=== PATIENT | female | born 1975 | race Caucasian/White ===

== ENCOUNTER → 2023-02-01 11:08 | Outpatient (BNVA) | payer SELFPAY | PROVIDERS: Family Provider Nurse Practitioner Family; PCP Registered Nurse; Visit Provider Registered Nurse | DX: N39.0 Urinary tract infection, site not specified (principal) | CPT/HCPCS: 81000 ==

== ENCOUNTER → 2023-02-06 08:04 | Outpatient (BNVA) | payer SELFPAY | PROVIDERS: Family Provider Nurse Practitioner Family; PCP Registered Nurse; Visit Provider Registered Nurse | DX: D35.00 Benign neoplasm of unspecified adrenal gland (principal) | CPT/HCPCS: 82533 ==

== ENCOUNTER 2024-02-21 13:25 | Emergency (ER) | payer BC, MEDICAID, SELFPAY ==
[2024-02-21 13:44] VITALS: BP 161/94; PULSE 77; RESP 16; TEMP 36.7; O2SAT 99
[2024-02-21 14:33] LABS: Basophils # 0.1 10^3/uL (0.0-0.1); Basophils % 0.4 %; Eosinophils # 0.1 10^3/uL (0.0-0.8); Eosinophils % 0.4 %; Hematocrit 42.5 % (36-47); Lymphocytes # 3.3 10^3/uL (0.8-4.8); Lymphocytes % 28.2 %; Mean Corpuscular HGB Conc 34.4 g/dL (30-55); Mean Corpuscular Hemoglobin 31.4 pg (27-33); Mean Corpuscular Volume 91.4 fl (85-98); Mean Platelet Volume 9.4 fL (7.4-10.4); Monocytes # 0.6 10^3/uL (0.2-0.9); Monocytes % 4.8 %; Neutrophils # 7.66 10^3/uL (1.8-7.7); Neutrophils % 65.9 %; Nucleated Red Blood Cells % 0 %; Platelet Count 285 10^3/cmm (157-399); Red Blood Count 4.65 10^6/uL (3.85-5.65); Red Cell Distribution Width 11.9 % (12.1-15.1); White Blood Count 11.63 10^3/uL (3.29-11.43)
[2024-02-21 14:48] LABS: HCG, Serum Qual Negative (Negative)
[2024-02-21 14:57] LABS: Alanine Aminotransferase 14 U/L (0-33); Albumin Level 4.5 g/dL (3.5-5.2); Alkaline Phosphatase 115 U/L (35-105); Aspartate Amino Transferase 18 U/L (0-32); Blood Urea Nitrogen 15 mg/dL (6-20); Carbon Dioxide 27 mmol/L (22-29); Chloride 105 mmol/L (98-107); Creatinine Clr Calc Pharmacy 77.1347; Glomerular Filtration Rate 67.1 mL/min (90-130); Glucose 98 mg/dL (65-115); Osmolality Calculated 295 mOsm/kg (285-295); Sodium 142 mmol/L (136-145); Total Bilirubin 0.3 mg/dL (0.15-1.2); Total Protein 7.5 g/dL (6.6-8.7)
--- NOTE | 2024-02-21 15:30 | ED_ITS ---
HPI - General Adult 2 General: Chief complaint: Weakness Stated complaint: panic attack Time Seen by Provider: 02/21/24 15:01 Source: patient Mode of arrival: EMS Limitations: no limitations History of Present Illness: Patient is a 48-year-old female who arrived to the ED today via EMS and subsequently taken to the waiting room here for what she believes could be panic attacks. Patient states she is under a significant amount of stress. Patient states Monday evening she felt very anxious and felt like she was breathing rapidly. She states her body then went numb and her legs felt crampy and she got tunnel headed . She states episode lasted approximately 30 minutes. Patient states she felt fine Monday and Monday but earlier today she states she had an upcoming [facility] [place] appointment and was very anxious in regards to this. She states she has a fear that her parents are going to place her on a 96-hour hold. Patient states she later had an argument with her mother which caused her to feel very stressed and then shortly after she began experiencing the same symptoms of body numbness, cramping, and feeling foggy headed. Again episode lasted approximately 30 minutes. Patient states she went for a walk which usually helps with her anxiety. Upon arrival to the emergency department she feels back to normal. She clinically appears in no acute distress with stable vital signs. Onset (ago): day(s) Relieving factors: none Exacerbating factors: other (stress/anxiety) Associated symptoms: Deny chest pain, dyspnea, headache(s), malaise, nausea, rash, palpitations, syncope or vomiting Treatments prior to arrival: none Review of Systems 2 Const: Denies: fever(s), chills, body aches, fatigue or malaise Eyes: Denies: change in vision or blurry vision Card: Denies: chest pain, palpitations, irregular heart rhythm, lightheadedness, syncope or dyspnea on exertion Resp: Denies: dyspnea, productive cough or pain on inspiration GI: Denies: abdominal pain, nausea, vomiting, heartburn or diarrhea : Denies: dysuria Musc: Denies: neck pain, back pain, extremity pain, extremity swelling or joint pain Skin/Breast: Denies: rash Neuro: Denies: headache(s), numbness in extremities, weakness in extremities or sensory changes Psych: Reports: anxiety; Denies: visual hallucinations, auditory hallucinations, suicidal ideation or homicidal ideation PFSH ED 2 PFSH: Medical History Post-menopause Family History Denies family history of Colon cancer Ovarian cancer Diabetes Heart disease Hypercholesteremia Breast cancer Hypertension Uterine cancer Thyroid disease Stroke Social History Smoking and tobacco/nicotine status: current every day tobacco/nicotine user Alcohol intake: never Substance/Drug Use: never Adopted: No Caregiver/support person: No Lives independently: No Household members: children service: No Current occupational status: employed Sexually active: Yes Do you think of yourself as: Straight/Heterosexual Current gender identity: Female Physical Exam 2 Const: COMMON NORMALS: no acute distress, patient oriented x3, no limitations, alert and well nourished GENERAL APPEARANCE: cooperative O RIENTATION/CONSCIOUSNESS: Yes awake, Yes oriented to person, Yes oriented to place and Yes oriented to time HENMT: COMMON NORMALS: normocephalic and atraumatic HEAD & SCALP: normal to inspection, normocephalic and atraumatic Eye: COMMON NORMALS: no scleral icterus Neck/C-Spine: COMMON NORMALS: full ROM, no lymphadenopathy, supple and no meningeal signs Chest: COMMONS NORMALS: normal inspection of the chest Resp: COMMON NORMALS: normal respiratory effort and clear to auscultation bilaterally AUSCULTATION: clear to auscultation bilaterally Cardio: COMMON NORMALS: regular rate and regular rhythm RATE: regular rate RHYTHM: regular rhythm Extremity: GENERAL: Yes normal exam except as noted Neuro: JUAN COMA SCALE: document GCS findings [place] coma scale eye opening: Spontaneous [place] coma scale verbal response: Orientated [place] coma scale motor response: Obey commands Juan coma scale total score: 15 COMMON NORMALS: patient oriented x3, CN's II-XII intact bilaterally, moves all extremities, no focal motor deficits, no sensory deficits noted and gait normal SENSORIUM/ORIENTATION: Yes alert, Yes oriented to person, Yes oriented to place and Yes oriented to time MENINGEAL SIGNS: Yes no meningeal signs Skin: COMMON NORMALS: no rashes or lesions noted GENERAL SKIN EXAM: no rashes or lesions noted Course 2 Vital Signs: Vital signs: Vital Signs Temperature 98.0 F 05/29/24 13:44 Pulse Rate 77 02/21/24 13:44 Respiratory Rate 16 02/21/24 13:44 Blood Pressure 161/94 02/21/24 13:44 Pulse Oximetry 99 02/21/24 13:44 Oxygen Delivery Me thod Room Air 02/21/24 13:44 MDM - General Adult Medical Decision Making Patient's history is consistent with panic attacks. Currently she appears in no acute distress with stable vitals. Her blood work is unremarkable. Recommend she continue services through [facility] [place]. She did miss her appointment today so she needs to contact them to reschedule. She was agreeable to start Vistaril to help with her anxiety. Also requesting a refill on her Lisinopril. She states she used to be on this but has not been for over a year. She has been hypertensive while here. Patient is not SI/HI. Medical Records I reviewed the patient's medical records. Lab Data I reviewed the patient's lab results. 02/21/24 14:09 02/21/24 14:09 Laboratory Results WBC 11.63 10^3/uL (3.29-11.43) H 02/21/24 14:09 RBC 4.65 10^6/uL (3.85-5.65) 02/21/24 14:09 Hgb 14.60 g/dL (11.27-16.99) 02/21/24 14:09 Hct 42.5 % (36-47) 02/21/24 14:09 MCV 91.4 fl (85-98) 02/21/24 14:09 MCH 31.4 pg (27-33) 02/21/24 14:09 MCHC 34.4 g/dL (30-55) 02/21/24 14:09 RDW 11.9 % (12.1-15.1) L 02/21/24 14:09 Plt Count 285 10^3/cmm (157-399) 02/21/24 14:09 MPV 9.4 fL (7.4-10.4) 02/21/24 14:09 Neut % (Auto) 65.9 % 02/21/24 14:09 Lymph % (Auto) 28.2 % 02/21/24 14:09 [place] % (Auto) 4.8 % 02/21/24 14:09 Eos % (Auto) 0.4 % 02/21/24 14:09 Baso % (Auto) 0.4 % 02/21/24 14:09 Neut # (Auto) 7.66 10^3/uL (1.8-7.7) 02/21/24 14:09 Lymph # (Auto) 3.3 10^3/uL (0.8-4.8) 02/21/24 14:09 [place]gard # (Auto) 0.6 10^3/uL (0.2-0.9) 02/21/24 14:09 Eos # (Auto) 0.1 10^3/uL (0.0-0.8) 02/21/24 14:09 Baso # (Auto) 0.1 10^3/uL (0.0-0.1) 02/21/24 14:09 Nucleated RBC % (auto) 0 % 02/21/24 14:09 Nucleated RBCs # 0.0 /100WBC 02/21/24 14:09 Sodium 142 mmol/L (136-145) 02/21/24 14:09 Potassium 4.0 mmol/L (3.5-5.1) 02/21/24 14:09 Chloride 105 mmol/L (98-107) 02/21/24 14:09 Carbon Dioxide 27 mmol/L (22-29) 02/21/24 14:09 Anion Gap 14.0 (5-19) 02/21/24 14:09 BUN 15 mg/dL (6-20) 02/21/24 14:09 Creatinine 0.9 mg/dL (0.5-0.9) 02/21/24 14:09 GFR Calculation 67.1 mL/min (90-130) L 02/21/24 14:09 Glucose 98 mg/dL (65-115) 02/21/24 14:09 Calculated Osmolality 295 mOsm/kg (285-295) 02/21/24 14:09 Calcium 10.0 mg/dL (8.5-10.5) 02/21/24 14:09 Total Bilirubin 0.3 mg/dL (0.15-1.2) 02/21/24 14:09 AST 18 U/L (0-32) 02/21/24 14:09 ALT 14 U/L (0-33) 02/21/24 14:09 Alkaline Phosphatase 115 U/L (35-105) H 02/21/24 14:09 Total Protein 7.5 g/dL (6.6-8.7) 02/21/24 14:09 Albumin 4.5 g/dL (3.5-5.2) 02/21/24 14:09 Globulin 3.0 g/dL (1.3-4.6) 02/21/24 14:09 HCG, Qual Negative (Negative) 02/21/24 14:09 No radiology studies performed this visit Discharge Plan Discharge Patient Disposition: Home Clinical Impression: Panic attack Condition: Stable Prescriptions: New Vistaril 25 mg capsule 25 mg PO Q6H PRN (Reason: anxiety) Qty: 20 0RF Continued lisinopril 10 mg tablet 10 mg PO DAILY 30 Days Qty: 30 0RF Discharge Orders: Discharge ED (Routine); Ordered 02/21/24 Ordered By: Aissatou Hobson Referrals: Josue Srinivasan FNP [Primary Care Provider] - Patient Instructions: Anxiety (ED), Panic Attack Coding Level of Care Code ED Cage Cashier for Santiago Wright
[2024-02-21 15:45] VITALS: BP 156/98; PULSE 72; RESP 17; O2SAT 94
[2024-02-21 15:50] VITALS: PULSE 67; O2SAT 95
== END 2024-02-21 15:51 | disposition home or self-care (01) ==
PROVIDERS: Emergency Provider Physician Assistant; PCP Registered Nurse
DX: F41.0 Panic disorder [episodic paroxysmal anxiety] (principal); Z72.0 Tobacco use
CPT/HCPCS: 36415; 80053; 84703; 85025; 99283

== ENCOUNTER → 2024-02-27 14:59 | Outpatient (BNVA) | payer BC, MEDICAID, SELFPAY | PROVIDERS: PCP Registered Nurse; Visit Provider Nurse Practitioner Women's Health | DX: Z12.4 Encounter for screening for malignant neoplasm of cervix (principal); N39.0 Urinary tract infection, site not specified; R82.90 Unspecified abnormal findings in urine; N91.2 Amenorrhea, unspecified | CPT/HCPCS: 82670; 83001; 83002; 84146; 84315; 84439; 84443; 84481; 87086; 87624 ==

== ENCOUNTER 2024-03-01 14:28 | Outpatient (CLI) | payer BC, MEDICAID, SELFPAY ==
--- NOTE | 2024-03-01 14:30 | MM_ITS ---
WS: [id number] BILATERAL 3D TOMOSYNTHESIS DIGITAL SCREENING MAMMOGRAPHY WITH CAD CLINICAL INFORMATION: Z12.31 - Encounter for screening mammogram for malignant ... HISTORY: Screening mammogram. No current complaints. COMPARISON: Baseline TECHNIQUE: Bilateral CC and MLO views. FINDINGS: The breasts are composed of heterogeneous fibroglandular density tissue, which can limit the detectio n of small underlying mass lesions. No suspicious mass, asymmetry, calcifications, or architectural d istortion. No evidence of malignancy. MM/[id number] IMPRESSION: BI-RADS: 1-Negative FOLLOW UP: 1 Year Follow-up Recommend return to annual screening mammography.
== END 2024-03-01 14:29 | disposition home or self-care (01) ==
LOC: RAD 14:28
PROVIDERS: PCP Registered Nurse; Visit Provider Nurse Practitioner Women's Health
DX: Z12.31 Encounter for screening mammogram for malignant neoplasm of breast (principal); R92.333 Mammographic heterogeneous density, bilateral breasts
CPT/HCPCS: 77063; 77067